=== PATIENT | female | born 1935 | race Hispanic/Latino ===

== ENCOUNTER 2019-10-24 14:53 | Emergency (ER) | payer MEDICARE, OTHER ==
[~2019-10-24] VITALS: Ht 149.9 cm; Wt 70.3 kg
[2019-10-24] MEDS ORDERED: TRAMADOL HCL 50 MG TAB PO ONE (15:45)
--- NOTE | 2019-10-24 16:53 | Diagnostic Imaging Report ---
Left wrist, 3 views. History: Fall. Findings: There is soft tissue swelling. The bones are diffusely osteopenic. A transverse fracture of the distal left radius is present with slight dorsal angulation of the distal fragment. There is no visible intra-articular extension. Associated ulnar styloid avulsion fracture is present. The bones are intact. There are no lytic or sclerotic lesions. The joint spaces are within normal limits. IMPRESSION: Distal left radial fracture with associated ulnar styloid avulsion. Signed by: Philip Leon on 10/24/2019 4:50 PM
--- OUTSIDE RECORDS SUMMARY | 2019-10-26 13:59 | XMS REPORT ---
Author Author [facility] Address Unknown Phone Unavailable Care Team Providers Care [place] Name Role Phone Celestino MAYNARD Unavailable Unavailable Payers Payer Name Policy Type Policy Number Effective Date Expiration Date Problems This patient has no known problems. Allergies, Adverse Reactions, Alerts Allergy Name Allergy Type Status Severity Reaction(s) Onset Date Inactive Date Treating Clinician Comments Penicillins DA Active U 2018-08-27 00:00:00 Sulfa (Sulfonamide Antibiotics) DA Active U 2018-08-27 00:00:00 codeine DA Active U 2018-08-27 00:00:00 Penicillins DA Active U 2016-11-19 00:00:00 Sulfa (Sulfonamide Antibiotics) DA Active U 2016-11-19 00:00:00 codeine DA Active U 2016-11-19 00:00:00 Medications This patient has no known medications. Results Test Description Test Time Test Comments Text Results Atomic Results Result Comments WRIST COMPLETE LEFT 2019-10-24 16:48:00 [place] [address] Patient Name: FLORINA JENKINS MR #: [id number] : 1935 Age/Sex: 84/F Req #: [id number] Adm Physician: Ordered by: RENETTA MAYNARD MD Report #: [id number] Location: ER Room/Bed: Procedure: [id number] DX/WRIST COMPLETE LEFT Exam Date: 10/24/19 Exam Time: 1600 REPORT STATUS: Signed Left wrist, 3 views. History: Fall. Findings: There is soft tissue swelling. The bones are diffusely osteopenic. A transverse fracture of the distal left radius is present with slight dorsal angulation of the distal fragment. There is no visible intra-articular extension. Associated ulnar styloid avulsion fracture is present. The bones are intact. There are no lytic or sclerotic lesions. The joint spaces are within normal limits. IMPRESSION: Distal left radial fracture with associated ulnar styloid avulsion. Signed by: Philip Leon on 10/24/2019 4:50 PM Dictated By: PHILIP LEON MD 49 Transcribed By: ROBERT on 10/24/191649 COPY TO: RENETTA MAYNARD MD - XR RIBS BI 3 V 2019-06-21 22:39:00 FAX: Lidya Pat DO [phone] [place]: St: REG Name: FLORINA JENKINS [facility] : 1935 Age/S: 84/F [address] [place] [address] Unit #: [id number] Loc: [address] [place] [address] Phys: Lidya Torres DO Acct: [id number] Dis Date: Status: REG ER PHONE #: [phone] Exam Date: 06/21/20192230 FAX #: [phone] Reason: chest and rib pain EXAMS: CPT CODE: [id number] XR RIBS BI 3 V 05463 Bilateral rib series HISTORY: Chest injury No comparisons. FINDINGS: No acute rib fracture or focal bony roxy truction demonstrated bilaterally. Lungs are clear. No pneumothorax or significant pleural fluid. IMPRESSION: No acute rib fracture bilaterally. SL:01 at 2239 Reported and signed by: Ac Whittaker M.D. CC: Lidya Torres DO Technologist: Hanna Trimble RT(R)(M); Jim Conway RT(R) Valentinaprrd Date/Time/By: 06/21/2019 (2) : By: Diogo Orig Print D/T: S: 06/21/2019 (8214) PAGE 1 Signed Report - XR CHEST 1 V 2019-06-21 22:36:00 FAX: Lidya Pat DO [phone] [place]: St: REG Name: FLORINA JENKINS [facility] : 1935 Age/S: 84/F [address] [place], [place] [address] Unit #: [id number] Loc: [address] [address] Phys: Lidya Torres DO Acct: [id number] Dis Date: Status: REG ER PHONE #: [phone] Exam Date: 06/21/20192230 FAX #: [phone] Reason: CHEST PAIN POST FALL EXAMS: CPT CODE: [id number] XR CHEST 1 V 00363 CHEST, SINGLE VIEW HISTORY: Chest injury Comparison made to prior chest x-ray dated 08/29/18. FINDINGS: The lungs are clear. No pneumothorax or significant pleural fluid bilaterally. The heart is enlarged. Pulmonary vascularity is normal. Bilateral rib series is pending. IMPRESSION: Stable chest, no acute abnormality compared to 08/29/18. SL:01 at 2236 Reported and signed by: Ac Whittaker M.D. CC: Lidya Torres DO Technologist: Hanna Trimble RT(R)(M); Jim Conway RT(R) Trnscrd Date/Time/By: 06/21/2019 (2193) : By: Diogo Orig Print D/T: S: 06/21/2019 (3424) PAGE 1 Signed Report PROTHROMBIN TIME 2019-06-21 22:31:00 PROTHROMBIN TIME PATIENT (test code=PTP) 11.0 SECONDS 9.3-12.9 INTERNATIONAL NORMAL RATIO (test code=INR) 1.0 0.8-1.2 TARGET INR BY INDICATION Indication INR1. Prophylaxis of venous thrombosis 2.0 - 3.0 (orthopedic surgery), Prophylaxis of venous thrombosis (other than high-risk surgery), Treatment of Deep Vein Thrombosis/Pulmonary Embolism, Prevention of systemic embolism - Tissue heart valves, Acute Myocardial Infarction (to prevent systemic embolism), Valvular heart disease, Atrial Fibrillation, Bileaflet mechanical valve in aortic position.2. Mechanical prosthetic valves (high risk), 2.5 - 3.5 Presence of Lupus Anticoagulant or Antiphospholipid Antibodies, Prevention of systemic embolism - Acute Myocardial Infarction (to prevent recurrent infarct). TROPONIN-I [id number] 22:23:00* Test Item Value Reference Range Comments TROPONIN-I RAPID (test code=TROPIRAP) 0.02 ng/mL 0.00-0.08 Performed by certified doubling machine operator at [facility] Negative: <=0.08 Positive: >=0.09An elevated troponin value alone is not sufficient todiagnose a myocardial infarction. Rather, the patient sclinical presentation (history, physical exam) and ECGshould be used in conjunction with troponin in thediagnostic evaluation of suspected myocardial infarction. Aserial sampling protocol is recommended to facilitate the identification of temporal changes in troponin levels characteristic of NM. BASIC METABOLIC [id number] 22:23:00* Test Item Value Reference Range Comments SODIUM (test code=NA) 139 mEq/L 134-147 POTASSIUM (test code=K) 4.0 mEq/L 3.4-5.0 CHLORIDE (test code=CL) 102 mEq/L 100-108 CARBON DIOXIDE (test code=CO2) 31 mEq/L 21-33 ANION GAP (test code=GAP) 10 0-20 GLUCOSE (test code=GLU) 118 mg/dL 70-110 BLOOD UREA NITROGEN (test code=BUN) 39 mg/dL 7-18 GLOMERULAR FILTRATION RATE (test code=GFR) 33.1 70-80 Units of measure=ml/min/1.73 m2 CREATININE (test code=CREAT) 1.5 mg/dL 0.6-1.3 CALCIUM (test code=CA) 8.8 mg/dL 8.0-10.5 [id number] 22:23:00* Test Item Value Reference Range Comments TROPONIN-I (test code=TROPI) 0.044 ng/mL 0.000-0.045 Negative: <=0.045 Positive: >=0.046 Correlation with serial results, other cardiac markers andclinical findings is necessary to determine the clinicalsignificance of this result. Results using different methodologies should not be comparedto one another as quantitative results may vary by method. CBC W/AUTO [id number] 22:02:00* Test Item Value Reference Range Comments WHITE BLOOD CELL (test code=WBC) 6.22 x10 3/uL 4.5-11.0 RED BLOOD CELL (test code=RBC) 3.93 x10 6/uL 3.54-5.02 HEMOGLOBIN (test code=HGB) 12.3 g/dL 11.0-15.0 HEMATOCRIT (test code=HCT) 38.4 % 33.0-45.0 MEAN CELL VOLUME (test code=MCV) 97.7 fL 81.0-99.0 MEAN CELL HGB (test code=MCH) 31.3 pg 27.0-33.0 MEAN CELL HGB CONCETRATION (test code=MCHC) 32.0 g/dL 33.0-37.0 RED CELL DISTRIBUTION WIDTH CV (test code=RDW) 12.4 % 11.5-14.5 RED CELL DISTRIBUTION WIDTH SD (test code=RDW-SD) 45.1 fL 37.0-54.0 PLATELET COUNT (test code=PLT) 132 x10 3/uL 150-400 MEAN PLATELET VOLUME (test code=MPV) 12.1 fL 7.0-9.0 NEUTROPHIL % (test code=NT%) 66.3 % 56.0-77.0 IMMATURE GRANULOCYTE % (test code=IG%) 0.3 % 0.0-2.0 LYMPHOCYTE % (test code=LY%) 21.2 % 14.0-32.0 MONOCYTE % (test code=MO%) 9.0 % 4.8-9.0 EOSINOPHIL % (test code=EO%) 2.9 % 0.3-3.7 BASOPHIL % (test code=BA%) 0.3 % 0.0-2.0 NUCLEATED RBC % (test code=NRBC%) 0.0 % 0-0 NEUTROPHIL # (test code=NT#) 4.12 x10 3/uL 2.0-7.6 IMMATURE GRANULOCYTE # (test code=IG#) 0.02 x10 3/uL 0.00-0.03 LYMPHOCYTE # (test code=LY#) 1.32 x10 3/uL 1.0-3.8 MONOCYTE # (test code=MO#) 0.56 x10 3/uL 0.1-0.8 EOSINOPHIL # (test code=EO#) 0.18 x10 3/uL 0.0-0.2 BASOPHIL # (test code=BA#) 0.02 x10 3/uL 0.0-0.2 NUCLEATED RBC # (test code=NRBC#) 0.00 x10 3/uL 0.0-0.1 MANUAL DIFF REQUIRED (test code=MDIFF) NO MM, DIGITAL, MAMMO, SCREENING, WITH SEAN, BILATERAL INCLUDING [id number] 09:22:00Reason for Exam:->Z12.31MRN#: [id number] - MM, DIGITAL, MAMMO, SCREENING, WITH SEAN, BILATERAL INCLUDING CADBILATERAL DIGITAL SCREENING MAMMOGRAM 3D/2D WITH CAD: 05/05/2018CLINICAL: Routine screening mammogram. Comparison is made to exams dated: 10/19/2016 mammogram, 07/24/2015 mammogram, 04/12/2014 mammogram, 05/29/2013 mammogram, 05/22/2012 mammogram, and 05/03/2011 mammogram - [facility]. The tissue of both breasts is heterogeneously dense. This may lower the sensitivity of mammography. Tomosynthesis 3D imaging of both breasts were performed with reconstructed 2D images using C-view. Current study was also evaluated with a Computer Aided Detection (CAD) system. Benign appearing calcifications are present in both breasts. No significant masses, calcifications, or other findings are seen in either breast. There has been no significant interval change. IMPRESSION: BENIGNThere is no mammographic evidence of malignancy. A 1 year screening mammogram is recommended. Phi ray s/:05/05/2018 09:22:17 Normal Exam Mammogram BI-RADS: 2 Benign Electron ically signed by: PHI VILLELA on 05/05/2018 09:22 AM
== END 2019-10-24 19:12 | disposition home or self-care (01) ==
LOC: ER 14:53
DX: S52.92XA Unspecified fracture of left forearm, initial encounter for closed fracture (principal); W01.0XXA Fall on same level from slipping, tripping and stumbling without subsequent striking against object, initial encounter; Y93.K1 Activity, walking an animal; Y92.008 Other place in unspecified non-institutional (private) residence as the place of occurrence of the external cause
CPT/HCPCS: 99284